=== PATIENT | male | born 1970 | race Caucasian/White ===

== ENCOUNTER 2017-05-20 07:05 | Emergency (ER) | payer MEDICAID, OTHER ==
[2017-05-20 07:09] VITALS: RESP 16
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
[2017-05-20 09:01] VITALS: BP 163/100; PULSE 74; TEMP 98.2; O2SAT 94
== END 2017-05-20 09:01 | disposition home or self-care (01) ==
DX: K59.00 Constipation, unspecified (principal); F17.200 Nicotine dependence, unspecified, uncomplicated

== ENCOUNTER 2019-04-07 18:52 | Emergency (ER) | payer SELFPAY, MEDICAID | END 2019-04-08 02:30 ==